=== PATIENT | male | born 1995 | race American Indian/Alaskan Native ===

== ENCOUNTER 2016-11-10 21:02 | Emergency (ER) | payer MEDICAID ==
[2016-11-10 22:36] LABS: Hemoglobin 14.2 gm/dl (11.8-15.2); Mean Corpuscular HGB Conc 32 % (32-34); Mean Corpuscular Hemoglobin 29 pg (28-32); Mean Corpuscular Volume 94 fl (84-94); Platelet Count 299 K/mm3 (140-440); Red Blood Count 4.82 M/mm3 (3.65-5.03); Red Cell Distribution Width 14.4 % (13.2-15.2); White Blood Count 14.1 K/mm3 (4.5-11.0)
[2016-11-10 22:39] LABS: Basophils % (Auto) 0.3 % (0.0-1.8); Eosinophils % (Auto) 0.8 % (0.0-4.3)
[2016-11-10 22:59] LABS: Anion Gap 18 mmol/L; BUN/Creatinine Ratio 18.88; Blood Urea Nitrogen 17 mg/dL (9-20); Calcium 9.1 mg/dL (8.4-10.2); Carbon Dioxide 25 mmol/L (22-30); Chloride 99.3 mmol/L (98-107); Glucose 102 mg/dL (75-100); Sodium 138 mmol/L (137-145)
[2016-11-10 23:15] LABS: Bilirubin,Urine NEG (Negative); Blood,Urine NEG (Negative); Ketones,Urine NEG (Negative); Leukocyte Esterase,Urine NEG (Negative); Mucus,Urine 3+ /HPF; Nitrite,Urine NEG (Negative)
--- NOTE | 2016-11-10 23:17 | Ultrasound Report ---
FINAL REPORT EXAM: US TESTICULAR DOPPLER COMP HISTORY: swollen scrotum and penis, no trauma TECHNIQUE: Ultrasound scrotum with pulsed and color Doppler evaluation PRIORS: None. FINDINGS: There is marked scrotal soft tissue swelling and edema as well as edema and swelling of the penis Right testicle is 4.0 x 2.1 x 2.2 centimeters Left testicle is 3.4 x 2.3 x 2.6 centimeters there is normal vascular flow seen to the testicles. There is normal echogenicity There is prominence of the left epididymal head which measures 3.2 x 1.2 x 0.9 centimeters Small bilateral hydroceles are IMPRESSION: Marked edema and swelling of this scrotum and penis prominence of the left epididymal head could reflect epididymitis Small bilateral hydroceles
[2016-11-11] MEDS ORDERED: LEVAQUIN PO ONE (07:17)
--- NOTE | 2016-11-11 07:38 | Emergency Department Report ---
ED Male HPI - General Chief complaint: Urogenital-Male Stated complaint: GROIN PAIN/SEIZURE Time Seen by Provider: 11/11/16 07:05 Source: family Mode of arrival: Ambulatory Limitations: Other - History of Present Illness Initial comments: 21-year-old male with a past medical history of autism and seizures presents to the hospital complaining of genital swelling noticed by father yesterday prior to arrival. Patient does not complain of any pain. No difficulty urinating. No reports of trauma, fever, or vomiting. - Related Data Previous Rx's Medication Instructions Recorded Last Taken Type Levofloxacin [Levaquin TAB] 500 mg PO QDAY #10 tablet 11/11/16 Unknown Rx Allergies Allergy/AdvReac Type Severity Reaction Status Date / Time No Known Allergies Allergy Unverified 11/10/16 22:01 ED Review of Systems ROS: Stated complaint: GROIN PAIN/SEIZURE Other details as noted in HPI Comment: Unobtainable due to pts medical conditions (autism) ED Past Medical Hx - Past Medical History Previous Medical History?: Yes Hx Seizures: Yes Additional medical history: AUTISM - Surgical History Past Surgical History?: No - Social History Smoking Status: Never Smoker - Medications Home Medications: Home Medications Medication Instructions Recorded Confirmed Last Taken Type Levofloxacin [Levaquin TAB] 500 mg PO QDAY #10 tablet 11/11/16 Unknown Rx ED Physical Exam - General Limitations: Other - Other Other exam information: General: No limitations, patient is alert in no acute distress Head exam: Atraumatic, normocephalic Eyes exam: Normal appearance ENT: Moist mucous membrane, normal oropharynx Neck exam: Normal inspection, full range of motion, no meningismus nontender Respiratory exam: Clear to auscultation bilateral, no wheezes, rales, crackles Cardiovascular: Normal rate and rhythm, normal heart sounds Abdomen: Soft, nondistended, and nontender, with normal bowel sounds, no rebound, or guarding : Circumcised, generalized penile edema and erythema. Scrotal edema left greater than right with mild erythema. Patient denies tenderness to palpation. Vertical testicular lie Extremity: Full range of motion normal inspection no deformity Back: Normal Inspection, full range of motion, no tenderness Neurologic: Alert, oriented x3, cranial nerves intact, no motor or sensory deficit Psychiatric: normal affect, normal mood Skin: Warm, dry, intact ED Course Vital Signs 11/10/16 11/11/1611/11/17 21:54 03:49 05:16 Temperature 98.5 F 98.1 F 98.3 F Pulse Rate 109 H 100 H 94 H Respiratory 18 12 15 Rate Blood Pressure 120/84 159/97 Blood Pressure 131/90 [Left] O2 Sat by Pulse 99 100 100 Oximetry - Reevaluation(s) Reevaluation #1: 11/11/16 09:05 Patient received by mouth Levaquin in the ED - Consultations Consultation #1: 11/11/16 07:41 case d/w Dr Moore Urology rec abd/pelvic ct and levaquin, if negative may f/u in office ED Medical Decision Making - Lab Data Result diagrams: 11/10/16 22:19 11/10/16 22:19 Lab Results 11/10/16 11/10/16 11/10/16 Range/Units 22:19 22:19 22:19 WBC 14.1 H (4.5-11.0) K/mm3 RBC 4.82 (3.65-5.03) M/mm3 Hgb 14.2 (11.8-15.2) gm/dl Hct 45.0 (35.5-45.6) % MCV 94 (84-94) fl MCH 29 (28-32) pg MCHC 32 (32-34) % RDW 14.4 (13.2-15.2) % Plt Count 299 (140-440) K/mm3 Lymph % (Auto) 18.1 (13.4-35.0) % [place] % (Auto) 6.5 (0.0-7.3) % Eos % (Auto) 0.8 (0.0-4.3) % Baso % (Auto) 0.3 (0.0-1.8) % Lymph # 2.6 (1.2-5.4) K/mm3 [place] # 0.9 H (0.0-0.8) K/mm3 Eos # 0.1 (0.0-0.4) K/mm3 Baso # 0.0 (0.0-0.1) K/mm3 Seg Neutrophils % 74.3 H (40.0-70.0) % Seg Neutrophils # 10.5 H (1.8-7.7) K/mm3 Sodium 138 (137-145) mmol/L Potassium 4.0 (3.6-5.0) mmol/L Chloride 99.3 (98-107) mmol/L Carbon Dioxide 25 (22-30) mmol/L Anion Gap 18 mmol/L BUN 17 (9-20) mg/dL Creatinine 0.9 (0.8-1.5) mg/dL Estimated GFR > 60 ml/min BUN/Creatinine Ratio 18.88 % Glucose 102 H (75-100) mg/dL Calcium 9.1 (8.4-10.2) mg/dL NT-Pro-B Natriuret Pep 23.06 (0-450) pg/mL Urine Color (Yellow) Urine Turbidity (Clear) Urine pH (5.0-7.0) Ur Specific Elmer (1.003-1.030) Urine Protein (Negative) mg/dL Urine Glucose (UA) (Negative) mg/dL Urine Ketones (Negative) mg/dL Urine Blood (Negative) Urine Nitrite (Negative) Urine Bilirubin (Negative) Urine Urobilinogen (<2.0) mg/dL Ur Leukocyte Esterase (Negative) Urine WBC (Auto) (0.0-6.0) /HPF Urine RBC (Auto) (0.0-6.0) /HPF U Epithel Cells (Auto) (0-13.0) /HPF Urine Mucus /HPF 11/10/16 Range/Units 23:00 WBC (4.5-11.0) K/mm3 RBC (3.65-5.03) M/mm3 Hgb (11.8-15.2) gm/dl Hct (35.5-45.6) % MCV (84-94) fl MCH (28-32) pg MCHC (32-34) % RDW (13.2-15.2) % Plt Count (140-440) K/mm3 Lymph % (Auto) (13.4-35.0) % [place] % (Auto) (0.0-7.3) % Eos % (Auto) (0.0-4.3) % Baso % (Auto) (0.0-1.8) % Lymph # (1.2-5.4) K/mm3 [place] # (0.0-0.8) K/mm3 Eos # (0.0-0.4) K/mm3 Baso # (0.0-0.1) K/mm3 Seg Neutrophils % (40.0-70.0) % Seg Neutrophils # (1.8-7.7) K/mm3 Sodium (137-145) mmol/L Potassium (3.6-5.0) mmol/L Chloride (98-107) mmol/L Carbon Dioxide (22-30) mmol/L Anion Gap mmol/L BUN (9-20) mg/dL Creatinine (0.8-1.5) mg/dL Estimated GFR ml/min BUN/Creatinine Ratio % Glucose (75-100) mg/dL Calcium (8.4-10.2) mg/dL NT-Pro-B Natriuret Pep (0-450) pg/mL Urine Color Yellow (Yellow) Urine Turbidity Clear (Clear) Urine pH 5.0 (5.0-7.0) Ur Specific Elmer 1.030 (1.003-1.030) Urine Protein 30 mg/dl (Negative) mg/dL Urine Glucose (UA) Neg (Negative) mg/dL Urine Ketones Neg (Negative) mg/dL Urine Blood Neg (Negative) Urine Nitrite Neg (Negative) Urine Bilirubin Neg (Negative) Urine Urobilinogen 2.0 (<2.0) mg/dL Ur Leukocyte Esterase Neg (Negative) Urine WBC (Auto) 1.0 (0.0-6.0) /HPF Urine RBC (Auto) 2.0 (0.0-6.0) /HPF U Epithel Cells (Auto) < 1.0 (0-13.0) /HPF Urine Mucus 3+ /HPF - Radiology Data Radiology results: report reviewed Testicular ultrasound: Marked edema and swelling of the scrotum and penis. Prominence of the left epididymal head which could reflect epididymitis. Small bilateral hydroceles CT abdomen and pelvis noncontrast: Impressive soft tissue swelling/edema in the anterior pelvic subcutaneous tissue his scrotum. This presumably represents cellulitis. No obvious abscess is identified. - Medical Decision Making Patient be discharged on Levaquin 10 days for scrotal and penile cellulitis as well as epididymitis. Outpatient urology follow-up will be encouraged. Case discussed with Dr. Moore - Differential Diagnosis cellulitis, abscess, hydrocele, epididymitis, UTI Critical Care Time: No Critical care attestation.: If time is entered above; I have spent that time in minutes in the direct care of this critically ill patient, excluding procedure time. ED Disposition Clinical Impression: Penile cellulitis, Cellulitis of scrotum, Epididymitis, Autism Disposition: DISCHARGED TO HOME OR SELFCARE Is pt being admited?: No Does the pt Need Aspirin: No Condition: Stable Instructions: Epididymitis (ED), Cellulitis (ED) Additional Instructions: Take the medication as prescribed. Return if symptoms worsen as indicated by discharge instructions or if patient has problems urinating. Follow-up with the urologist provided. Prescriptions: Levofloxacin [Levaquin TAB] 500 mg PO QDAY #10 tablet Referrals: MARIELA MOORE MD [Staff Physician] - 2-3 Days (Urology) Forms: STI Treatment and Prevention Time of Disposition: 09:09
--- NOTE | 2016-11-11 08:19 | Cat Scan Report ---
CT OF THE ABDOMEN AND PELVIS WITHOUT CONTRAST HISTORY: Testicular and scrotal swelling, pain. TECHNIQUE: Helical CT without contrast. Sagittal and coronal reformatted images. FINDINGS: There is moderate nonspecific subcutaneous edema in the anterior pelvic subcutaneous tissues which extends to the scrotal sac. There is no evidence for soft tissue gas or foreign body. There is suggestion of a left hydrocele within the scrotal sac although a scrotal abscess it is difficult to exclude without IV contrast. Please correlate with the patient. Within the limits of a noncontrast exam, the abdominal and pelvic viscera are within normal limits. The liver, biliary system, pancreas, spleen, kidneys, adrenal glands and bladder are unremarkable. The bowel loops are normal caliber and wall thickness. Normal appendix. The aorta is normal caliber. No ascites, bulky adenopathy or inflammatory changes. The lung bases are clear. Normal heart size. No suspicious bony lesion. IMPRESSION: Impressive soft tissue swelling/edema in the anterior pelvic subcutaneous tissues and scrotum. This presumably represents a cellulitis. No obvious abscess is identified on noncontrast CT. No hernia is visualized. Consider further evaluation with scrotal/testicular ultrasound.
[2016-11-11 09:21] VITALS: BP 113/78
== END 2016-11-11 09:20 | disposition home or self-care (01) ==
LOC: ED 21:02
DX: N48.22 Cellulitis of corpus cavernosum and penis (principal); N49.2 Inflammatory disorders of scrotum; N45.1 Epididymitis; F84.0 Autistic disorder
CPT/HCPCS: 36415; 74176; 80048; 81001; 83880; 85025; 93975; 99284

== ENCOUNTER 2016-12-09 11:24 | Emergency (ER) | payer MEDICAID ==
--- NOTE | 2016-12-09 12:03 | Emergency Department Report ---
ED Seizure HPI - General Chief Complaint: Seizure Stated Complaint: SEIZURES/MED REFILL Time Seen by Provider: 12/09/16 11:47 Source: patient Mode of arrival: Ambulatory Limitations: No Limitations - History of Present Illness Initial Comments: 20-year-old male patient questionable seizure disorder presenting with seizure. Per color adviser, father, eye patient was noted to be staring off into space with urinary incontinence. Refrigerating Technician reports he's had these these in the past was on Depakote 125 mg twice a day but was never given a refill never given a refill so he assumed the patient did not need to be on seizure medication. He does note patient has an appointment with a neurologist next month. Otherwise patient has been at his normal baseline of health. No fevers, chills, CARNEY, dizziness, complaints of pain, NVD, SOB, CP, abd pain, travel, or sick contacts . - Related Data Home Medications Medication Instructions Recorded Confirmed Last Taken Bisacodyl [Dulcolax suppos] 10 mg [place] QDAY 12/09/16 12/09/16 Unknown Polyethylene Glycol 3350 [Miralax 12/09/16 Unknown 3350] Previous Rx's Medication Instructions Recorded Last Taken Type Permethrin 5% [Acticin 5% CREAM] 1 applicatio TP ONCE #1 tube 12/09/16 Unknown Rx Valproic Acid (As Sodium Salt) 2.5 ml PO BID #150 ml 12/09/16 Unknown Rx [Depakene] Allergies Allergy/AdvReac Type Severity Reaction Status Date / Time No Known Allergies Allergy Unverified 11/10/16 22:01 ED Review of Systems ROS: Stated complaint: SEIZURES/MED REFILL Other details as noted in HPI Comment: Unobtainable due to pts medical conditions ED Past Medical Hx - Past Medical History Previous Medical History?: Yes Hx Seizures: Yes Additional medical history: AUTISM - Surgical History Past Surgical History?: No - Social History Smoking Status: Never Smoker Substance Use Type: Prescribed - Medications Home Medications: Home Medications Medication Instructions Recorded Confirmed Last Taken Type Bisacodyl [Dulcolax suppos] 10 mg [place] QDAY 12/09/16 12/09/16 Unknown History Permethrin 5% [Acticin 5% CREAM] 1 applicatio TP ONCE #1 tube 12/09/16 Unknown Rx Polyethylene Glycol 3350 [Miralax 12/09/16 Unknown History 3350] Valproic Acid (As Sodium Salt) 2.5 ml PO BID #150 ml 12/09/16 Unknown Rx [Depakene] ED Physical Exam - General Limitations: No Limitations, Language Barrier (MR) General appearance: alert, in no apparent distress - Head Head exam: Present: atraumatic, normocephalic - Eye Eye exam: Present: normal appearance - ENT ENT exam: Present: normal exam, mucous membranes moist - Neck Neck exam: Present: normal inspection - Respiratory Respiratory exam: Present: normal lung sounds bilaterally. Absent: respiratory distress - Cardiovascular Cardiovascular Exam: Present: regular rate, normal rhythm. Absent: systolic murmur, diastolic murmur, rubs, gallop - GI/Abdominal GI/Abdominal exam: Present: soft, normal bowel sounds - Rectal Rectal exam: Present: deferred - Extremities Exam Extremities exam: Present: normal inspection - Back Exam Back exam: Present: normal inspection - Neurological Exam Neurological exam: Present: alert, CN II-XII intact, normal gait. Absent: motor sensory deficit - Psychiatric Psychiatric exam: Present: normal affect, normal mood - Skin Skin exam: Present: warm, dry, normal color, other (multiple excoriations and scabs along forearms, sides of the abdomen, and along the ankles bilaterally). Absent: rash ED Course Vital Signs 12/09/16 12/09/16 12/09/16 11:31 11:53 13:12 Temperature 98 F 98.2 F Pulse Rate 105 H 90 Respiratory 20 14 Rate Blood Pressure 132/97 Blood Pressure 120/86 [Right] O2 Sat by Pulse 100 100 99 Oximetry ED Medical Decision Making - Lab Data Result diagrams: 12/09/16 11:58 12/09/16 11:58 - EKG Data -: EKG Interpreted by Me - EKG Data 12/09/16 13:38 EKG 12:30, normal sinus rhythm at 89 beats per minute, QTC 459 ms, normal axis, no LVH, no ST changes, no STEMI - Medical Decision Making Potassium repleted with 40meq Kdur Pt also given depakote 125mg x 1 dose Will resume patient on his depakote till he is seen by the neurologist next month HR improved to 80 bpm Concern for scabies given excoriations along the forearms and ankles, however, 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 No lesions seen on his back side or back of the legs. Pt also shares a bunk with his brother who has no lesions or scabs. Will treat for scabies anyways Critical care attestation.: If time is entered above; I have spent that time in minutes in the direct care of this critically ill patient, excluding procedure time. ED Disposition Clinical Impression: Seizure, Scabies Disposition: TO HOME OR SELFCARE Is pt being admited?: No Condition: Stable Instructions: Epilepsy (ED), Scabies (ED) Prescriptions: Permethrin 5% [Acticin 5% CREAM] 1 applicatio TP ONCE #1 tube Valproic Acid (As Sodium Salt) [Depakene] 2.5 ml PO BID #150 ml Referrals: PRIMARY CARE, [Primary Care Provider] - 3-5 Days
[2016-12-09 12:21] LABS: Basophils % (Auto) 0.6 % (0.0-1.8); Eosinophils % (Auto) 6.6 % (0.0-4.3); Hematocrit 43.6 % (35.5-45.6); Hemoglobin 14.3 gm/dl (11.8-15.2); Mean Corpuscular HGB Conc 33 % (32-34); Mean Corpuscular Hemoglobin 30 pg (28-32); Mean Corpuscular Volume 92 fl (84-94); Platelet Count 231 K/mm3 (140-440); Red Blood Count 4.75 M/mm3 (3.65-5.03); Red Cell Distribution Width 14.1 % (13.2-15.2); White Blood Count 9.8 K/mm3 (4.5-11.0)
[2016-12-09 12:36] LABS: Alanine Aminotransferase 17 units/L (7-56); Albumin 4.1 g/dL (3.9-5); Albumin/Globulin Ratio 1.1 %; Alkaline Phosphatase 81 units/L (35-129); Anion Gap 22 mmol/L; BUN/Creatinine Ratio 15.55; Blood Urea Nitrogen 14 mg/dL (9-20); Calcium 8.9 mg/dL (8.4-10.2); Carbon Dioxide 23 mmol/L (22-30); Glucose 76 mg/dL (75-100); Potassium 3.1 mmol/L (3.6-5.0); Sodium 144 mmol/L (137-145); Total Protein 7.8 g/dL (6.3-8.2)
[2016-12-09] MEDS ORDERED: K-DUR PO ONE (13:39)
[2016-12-09 14:17] LABS: Urine Drugs of Abuse Note Disclamer
[2016-12-09 14:38] LABS: Bacteria,Urine 1+ /HPF (Negative); Bilirubin,Urine NEG (Negative); Blood,Urine NEG (Negative); Ketones,Urine 80 mg/dL (Negative); Leukocyte Esterase,Urine NEG (Negative); Mucus,Urine 1+ /HPF; Nitrite,Urine NEG (Negative)
[2016-12-09] MEDS ORDERED: NACL 0.9% 1000 ML 1,000 ML ONE (15:05)
[2016-12-09] MEDS: NACL 0.9% 1000 ML 1,000 ML IV ONE ×2 (15:11→15:23)
[2016-12-09 17:35] VITALS: BP 120/78
== END 2016-12-09 17:00 | disposition home or self-care (01) ==
LOC: ED 11:24
DX: R56.9 Unspecified convulsions (principal); B86 Scabies; F84.0 Autistic disorder
CPT/HCPCS: 36415; 80053; 80307; 81001; 82140; 82962; 85025; 93005; 93010; 99284; J7030